=== PATIENT | male | born 1955 | race Caucasian/White ===

== ENCOUNTER 2019-02-22 14:57 | Emergency (ER) | payer MEDICARE, OTHER ==
[2019-02-22] MEDS ORDERED: Sodium Chloride 0.9% 10 ML Syringe FLUSH PRN (15:10)
[2019-02-22] MEDS ORDERED: Nitroglycerin 0.4 MG Tab.SL SL PRN (15:10)
[2019-02-22] MEDS ORDERED: Aspirin 81 MG Tab.Chew PO ONE (15:10)
--- NOTE | 2019-02-22 15:10 | EDM.PDOC ---
ED HPI GENERAL MEDICAL PROBLEM - General Chief Complaint: Chest Pain Stated Complaint: CHEST PAIN [id number] Time Seen by Provider: 02/22/19 15:09 Source of Information: Reports: Patient, Old Records, RN, RN Notes Reviewed History Limitations: Reports: No Limitations - History of Present Illness INITIAL COMMENTS - FREE TEXT/NARRATIVE: Pt presents to ER by POV with c/o chest pain that began last night. Pt states the CP began while he was at rest, and feels like a tightness associated with shortness of breath. He denies cough, wheezing, palpitations, edema, orthopnea, nausea, or hemoptysis. Pt states the symptoms subsided and he slept through the night. Today he tried to do a little light work and the pain return. Pt has no personal Hx of CAD or previous ME. However, pt's father, several brothers, and one sister have all had stents. Onset: Sudden Onset Date: 02/21/19 Duration: Getting Worse, Waxing/Waning Location: Reports: Chest Quality: Reports: Pressure Severity: Moderate Improves with: Reports: None Worsens with: Reports: None Associated Symptoms: Reports: No Other Symptoms Left Chest Pain Score (Numeric/FACES): 8 - Related Data Allergies Allergy/AdvReac Type Severity Reaction Status Date / Time Penicillins Allergy Itching Verified 02/22/19 15:02 Home Meds: Home Meds . [No Known Home Meds] 11/17/16 [History] Past Medical History - Past Health History Medical/Surgical History: Denies Medical/Surgical History HEENT History: Reports: None Cardiovascular History: Reports: Heart Murmur Other Cardiovascular History: heart murmur when he was little Respiratory History: Reports: None Gastrointestinal History: Reports: None Genitourinary History: Reports: None Musculoskeletal History: Reports: None Neurological History: Reports: None Psychiatric History: Reports: None Endocrine/Metabolic History: Reports: None Hematologic History: Reports: None Immunologic History: Reports: None Oncologic (Cancer) History: Reports: None Dermatologic History: Reports: None - Infectious Disease History Infectious Disease History: Reports: None - Past Surgical History Head Surgeries/Procedures: Reports: None Social & Family History - Family History Cardiac: Reports: CAD (Father, brothers, and sister), Stent (Father had stents x11, several brothers and one sister also have stents) - Tobacco Use Smoking Status *Q: Never Smoker Second Hand Smoke Exposure: No - Caffeine Use Caffeine Use: Reports: Coffee - Recreational Drug Use Recreational Drug Use: No - Living Situation & Occupation Living situation: Reports: Occupation: Employed ED ROS GENERAL - Review of Systems Review Of Systems: ROS reveals no pertinent complaints other than HPI. ED EXAM, GENERAL - Physical Exam Exam: See Below Exam Limited By: No Limitations General Appearance: Alert, WD/WN, No Apparent Distress Eye Exam: Bilateral Eye: Normal Inspection Ears: Normal External Exam, Hearing Grossly Normal Nose: Normal Inspection, Normal Mucosa, No Blood Throat/Mouth: Normal Inspection, Normal Lips, Normal Teeth, Normal Gums, Normal Oropharynx, Normal Voice, No Airway Compromise Head: Atraumatic, Normocephalic Neck: Normal Inspection, Supple, Non-Tender, Full Range of Motion Respiratory/Chest: No Respiratory Distress, Lungs Clear, Normal Breath Sounds, No Accessory Muscle Use, Chest Non-Tender Cardiovascular: Normal Peripheral Pulses, Regular Rate, Rhythm, No Edema, No Gallop, No JVD, No Murmur, No Rub GI/Abdominal: Normal Bowel Sounds, Soft, Non-Tender, No Organomegaly, No Distention, No Abnormal Bruit, No Mass (Male) Exam: Deferred Rectal (Males) Exam: Deferred Back Exam: Normal Inspection, Full Range of Motion, NT Extremities: Normal Inspection, Normal Range of Motion, Non-Tender, Normal Capillary Refill, No Pedal Edema Neurological: Alert, Oriented, CN II-XII Intact, Normal Cognition, Normal Gait, Normal Reflexes, No Motor/Sensory Deficits Psychiatric: Normal Affect, Normal Mood Skin Exam: Warm, Dry, Intact, Normal Color, No Rash EKG INTERPRETATION EKG Date: 02/22/19 Time: 16:11 Rhythm: NSR [place]: Normal P-Wave: Present QRS: Normal ST-T: Normal QT: Normal Comparison: No Change EKG Interpretation Comments: No acute ischemic changes. Course - Vital Signs Last Recorded V/S: Last Vital Signs Temp 36.1 C 02/22/19 15:02 Pulse 72 02/22/19 15:02 Resp 14 02/22/19 15:02 BP 137/75 02/22/19 15:13 Pulse Ox 97 02/22/19 15:02 - Orders/Labs/Meds Orders: Active Orders 24 hr Category Date Time Status EKG 12 Lead [EKG Documentation Completion] [RC] STAT Care 02/22/19 15:10 Active Peripheral IV Care [] . DIRECTED Care 02/22/19 15:11 Active Heparin Sodium/0.45% NaCl [Heparin 25,000 Units in 1/2 Med 02/22/19 15:45 Active NS 500 ML] 25,000 units in 500 ml IV TITRATE Nitroglycerin [Nitrostat] Med 02/22/19 15:10 Active 0.4 mg SL Q5M PRN Sodium Chloride 0.9% [Saline Flush] Med 02/22/19 15:10 Active 10 ml FLUSH ASDIRECTED PRN Peripheral IV Insertion Adult [OM.PC] Stat Oth 02/22/19 15:10 Ordered Medication Orders Heparin Sodium/Sodium Chloride (Heparin 25,000 Units In 1/2 Ns 500 Ml) 25,000 units in 500 mls @ 25.909 mls/hr IV TITRATE EVAN; Protocol Last Admin: 02/22/19 15:50 Dose: 12 units/kg/hr, 25.909 mls/hr Nitroglycerin (Nitrostat) 0.4 mg SL Q5M PRN PRN Reason: Chest Pain Last Admin: 02/22/19 15:13 Dose: 0.4 mg Sodium Chloride (Saline Flush) 10 ml FLUSH ASDIRECTED PRN PRN Reason: Keep Vein Open Last Admin: 02/22/19 15:13 Dose: 10 ml Labs: Laboratory Tests 02/22/19 02/22/19 02/22/19 Range/Units 15:07 15:07 15:07 WBC 6.3 (5.0-10.0) 10^3/uL RBC 4.78 (4.6-6.2) 10^6/uL Hgb 15.4 (14.0-18.0) g/dL Hct 45.0 (40.0-54.0) % MCV 94.1 (80-100) fL MCH 32.2 (27.0-34.0) pg MCHC 34.2 (33.0-35.0) g/dL Plt Count 140 L (150-450) 10^3/uL Neut % (Auto) 67.0 (42.2-75.2) % Lymph % (Auto) 21.3 (20.5-50.1) % [place] % (Auto) 9.2 H (2-8) % Eos % (Auto) 2.2 (1.0-3.0) % Baso % (Auto) 0.3 (0.0-1.0) % D-Dimer, Quantitative 326 (0-400) ng/mL Sodium 135 (135-145) mmol/L Potassium 4.2 (3.6-5.0) mmol/L Chloride 106 (101-111) mmol/L Carbon Dioxide 23.0 (21.0-31.0) mmol/L Anion Gap 10.2 BUN 22 H (7-18) mg/dL Creatinine 1.0 (0.6-1.3) mg/dL Est Cr Clr Drug Dosing 76.04 mL/min Estimated GFR (MDRD) > 60 BUN/Creatinine Ratio 22.00 Glucose 82 (74-105) mg/dL Calcium 8.5 (8.4-10.2) mg/dl Total Bilirubin 0.9 (0.2-1.0) mg/dL AST 28 (10-42) IU/L ALT 18 (10-60) IU/L Alkaline Phosphatase 75 (42-121) IU/L Troponin I 0.34 H* (0.00-0.02) ng/ml Total Protein 7.4 (6.7-8.2) g/dl Albumin 4.2 (3.2-5.5) g/dl Globulin 3.2 Albumin/Globulin Ratio 1.31 Lipase 28 (22-51) U/L Meds: Medications Generic Name Dose Route Start Last Admin Trade Name Freq PRN Reason Stop Dose Admin Heparin Sodium/Sodium Chloride 25,000 units in 500 mls @ 25.909 mls/hr 15:45 02/22/19 15:50 Heparin 25,000 Units In 1/2 Ns 500 Ml IV 12 units/kg/hr TITRATE EVAN 25.909 mls/hr Administration Protocol 12 UNITS/KG/HR Nitroglycerin 0.4 mg 02/22/19 15:10 02/22/19 15:13 Nitrostat SL 0.4 mg Q5M PRN Administration Chest Pain Sodium Chloride 10 ml 02/22/19 15:10 02/22/19 15:13 Saline Flush FLUSH 10 ml ASDIRECTED PRN Administration Keep Vein Open Discontinued Medications Generic Name Dose Route Start Last Admin Trade Name Freq PRN Reason Stop Dose Admin Aspirin 324 mg 02/22/19 15:10 02/22/19 15:13 Aspirin PO 02/22/19 15:11 324 mg ONETIME ONE Administration Heparin Sodium (Porcine) 4,000 units 02/22/19 15:44 02/22/19 15:50 Heparin Sodium IVPUSH 02/22/19 15:45 4,000 units ONETIME ONE Administration - Radiology Interpretation Free Text/Narrative:: XR Chest: no acute process per Rad. report. Departure - Departure Time of Disposition: 16:12 Disposition: DC/Tfer to [facility] 02 Reason for Transfer *Q: Primary PCI Indicated Condition: Serious, Critical Clinical Impression: Non-STEMI (non-ST elevated myocardial infarction) Forms: ED Department Discharge, Interfacility Transfer EMTALA - My Orders Last 24 Hours: My Active Orders 02/22/19 15:10 EKG 12 Lead [EKG Documentation Completion] [RC] STAT Nitroglycerin [Nitrostat] 0.4 mg SL Q5M PRN Sodium Chloride 0.9% [Saline Flush] 10 ml FLUSH ASDIRECTED PRN Peripheral IV Insertion Adult [OM.PC] Stat 02/22/19 15:11 Peripheral IV Care [RC] . DIRECTED 02/22/19 15:45 Heparin Sodium/0.45% NaCl [Heparin 25,000 Units in 1/2 NS 500 ML] 25,000 units in 500 ml IV TITRATE - Assessment/Plan Last 24 Hours: My Active Orders 02/22/19 15:10 EKG 12 Lead [EKG Documentation Completion] [RC] STAT Nitroglycerin [Nitrostat] 0.4 mg SL Q5M PRN Sodium Chloride 0.9% [Saline Flush] 10 ml FLUSH ASDIRECTED PRN Peripheral IV Insertion Adult [OM.PC] Stat 02/22/19 15:11 Peripheral IV Care [RC] . DIRECTED 02/22/19 15:45 Heparin Sodium/0.45% NaCl [Heparin 25,000 Units in 1/2 NS 500 ML] 25,000 units in 500 ml IV TITRATE
[2019-02-22 15:13] VITALS: BP 137/75
[2019-02-22 15:36] LABS: ANION GAP 10.2; CHLORIDE,CL 106 mmol/L (101-111); SODIUM,NA 135 mmol/L (135-145)
--- NOTE | 2019-02-22 15:39 | CR ---
Clinical history: 63-year-old male chest pain. Interpretation: No acute new cardiopulmonary abnormality identified in the interval since 17 November 2016 exam. Upright AP portable chest film confirms normal cardiac silhouette with left-sided aortic arch. (External tie tamper leads) No cephalization of vascular flow, new signs of alveolar edema or dependent pleural fluid accumulation. No new lung mass, hilar lymphadenopathy or focal lobar pneumonia. No atelectasis/collapse. No pneumothorax.
[2019-02-22] MEDS ORDERED: Heparin Sodium 5,000 Units/ML Vial IVPUSH ONE (15:44)
[2019-02-22] MEDS ORDERED: Heparin Sodium/0.45% NaCl 25,000 UNITS/500 ML BAG IV SCH (15:45)
== END 2019-02-22 16:32 ==
LOC: DL.ED 14:57
DX: I21.4 Non-ST elevation (NSTEMI) myocardial infarction (principal); Z88.0 Allergy status to penicillin
CPT/HCPCS: 36415; 71045; 80053; 83690; 84484; 85025; 85379; 93005; 96365; 99285-25; A9270-GY; J1644

== ENCOUNTER 2019-02-25 06:43 | Emergency (ER) | payer MEDICARE, OTHER ==
[2019-02-25 06:53] VITALS: BP 137/85
[2019-02-25] MEDS ORDERED: Heparin Sodium 5,000 Units/ML Vial IVPUSH ONE (07:05)
[2019-02-25] MEDS ORDERED: Aspirin 81 MG Tab.Chew PO ONE (07:05)
[2019-02-25] MEDS ORDERED: Heparin Sodium/0.45% NaCl 25,000 UNITS/500 ML BAG IV SCH (07:15)
[2019-02-25 07:21] LABS: ANION GAP 13.6; CHLORIDE,CL 105 mmol/L (101-111); SODIUM,NA 136 mmol/L (135-145)
--- NOTE | 2019-02-25 07:27 | EDM.PDOC ---
ED HPI GENERAL MEDICAL PROBLEM - General Chief Complaint: Chest Pain Stated Complaint: HAD A STINT PUT IN THURSDAY- NOT FEELING WELL Time Seen by Provider: 02/25/19 06:55 Source of Information: Reports: Patient, Family, Old Records, RN, RN Notes Reviewed History Limitations: Reports: No Limitations - History of Present Illness INITIAL COMMENTS - FREE TEXT/NARRATIVE: Pt presents to ER from home by POV with c/o chest pain. He was transferred from here on 02/22/19 to [facility] for a non-STEMI and taken to cardiac cath where he received a stent. Late last evening pt began to have a pain in the left elbow, but was able to sleep through the night. This morning after waking, as soon as he became active the chest pain returned very similar to the pain he experienced on 02/22/19 except today the pain was worse. He took Nitroglycerin 0.4mg SL x1 with minimal relief. Onset: Gradual Duration: Constant, Getting Worse Location: Reports: Chest Quality: Reports: Ache, Pressure, Same as Previous Episode Severity: Severe Improves with: Reports: None Worsens with: Reports: None Associated Symptoms: Reports: No Other Symptoms Treatments EDUCATION TECHNICIAN: Reports: Nitroglycerin Mid-Sternal Chest Pain Score (Numeric/FACES): 7 - Related Data Allergies Allergy/AdvReac Type Severity Reaction Status Date / Time Penicillins Allergy Itching Verified 02/25/19 06:53 Home Meds: Home Meds Clopidogrel [Plavix] 75 mg PO 02/25/19 [History] Metoprolol Succinate 25 mg PO 02/25/19 [History] Nitroglycerin 0.4 mg SL PRN 02/25/19 [History] atorvaSTATin Calcium [Atorvastatin Calcium] 80 mg PO 02/25/19 [History] Past Medical History - Past Health History Medical/Surgical History: Denies Medical/Surgical History HEENT History: Reports: None Cardiovascular History: Reports: Heart Murmur, [place], Stents Other Cardiovascular History: heart murmur when he was little Respiratory History: Reports: None Gastrointestinal History: Reports: None Genitourinary History: Reports: None Musculoskeletal History: Reports: None Neurological History: Reports: None Psychiatric History: Reports: None Endocrine/Metabolic History: Reports: None Hematologic History: Reports: None Immunologic History: Reports: None Oncologic (Cancer) History: Reports: None Dermatologic History: Reports: None - Infectious Disease History Infectious Disease History: Reports: None - Past Surgical History Head Surgeries/Procedures: Reports: None Other Cardiovascular Surgeries/Procedures: Stent placement after [facility] 02-23-2019 Social & Family History - Family History Family Medical History: Noncontributory Cardiac: Reports: CAD, Stent - Tobacco Use Smoking Status *Q: Never Smoker Second Hand Smoke Exposure: No - Caffeine Use Caffeine Use: Reports: Coffee, Soda - Alcohol Use Days Per Week of Alcohol Use: 1 Number of Drinks Per Day: 3 Total Drinks Per Week: 3 - Recreational Drug Use Recreational Drug Use: No - Living Situation & Occupation Living situation: Reports: Occupation: Employed ED ROS GENERAL - Review of Systems Review Of Systems: ROS reveals no pertinent complaints other than HPI. ED EXAM, GENERAL - Physical Exam Exam: See Below Exam Limited By: No Limitations General Appearance: Alert, WD/WN, No Apparent Distress, Anxious Eye Exam: Bilateral Eye: Normal Inspection Nose: Normal Inspection, Normal Mucosa, No Blood Throat/Mouth: Normal Inspection, Normal Voice, No Airway Compromise Head: Atraumatic, Normocephalic Neck: Normal Inspection Respiratory/Chest: No Respiratory Distress, Lungs Clear, Normal Breath Sounds, No Accessory Muscle Use, Chest Non-Tender Cardiovascular: Normal Peripheral Pulses, Regular Rate, Rhythm, No Edema, No Gallop, No JVD, No Murmur, No Rub GI/Abdominal: Normal Bowel Sounds, Soft, Non-Tender Back Exam: Normal Inspection Extremities: Normal Inspection, Normal Range of Motion, Non-Tender, Normal Capillary Refill, No Pedal Edema Neurological: Alert, Oriented, CN II-XII Intact, Normal Cognition, No Motor/ Sensory Deficits Psychiatric: Anxious Skin Exam: Warm, Dry, Intact, Normal Color, No Rash EKG INTERPRETATION EKG Date: 02/25/19 Time: 06:52 Rhythm: Other (SR) Rate (Beats/Min): 66 [place]: LAD-Left [place] Deviation P-Wave: Present QRS: Other (Q wave in lead 3 with inverted T wave) ST-T: Normal QT: Normal [place]/PQ Interval: 1st degree AVB Comparison: Change From Previous EKG Course - Vital Signs Last Recorded V/S: Last Vital Signs Temp 36.5 C 02/25/19 06:49 Pulse 59 L 02/25/19 06:49 Resp 17 02/25/19 06:49 BP 137/85 02/25/19 06:49 Pulse Ox 97 05/10/19 06:49 - Orders/Labs/Meds Orders: Active Orders 24 hr Category Date Time Status EKG Documentation Completion [RC] URGENT Care 02/25/19 06:52 Active Chest 1V Frontal [CR] Urgent Exams 02/25/19 06:53 Taken COMPREHENSIVE METABOLIC PN,CMP [CHEM] Urgent Lab 02/25/19 06:52 Received INR,PT,PROTHROMBIN TIME [COAG] Stat Lab 02/25/19 06:52 Received TROPONIN I [CHEM] Urgent Lab 02/25/19 06:52 Received Heparin Sodium/0.45% NaCl [Heparin 25,000 Units in 1/2 Med 02/25/19 07:15 Active NS 500 ML] 25,000 units in 500 ml IV TITRATE Medication Orders Heparin Sodium/Sodium Chloride (Heparin 25,000 Units In 1/2 Ns 500 Ml) 25,000 units in 500 mls @ 25.256 mls/hr IV TITRATE EVAN; Protocol Labs: Laboratory Tests 02/25/19 Range/Units 06:52 WBC 9.1 (5.0-10.0) 10^3/uL RBC 4.87 (4.6-6.2) 10^6/uL Hgb 15.6 (14.0-18.0) g/dL Hct 45.6 (40.0-54.0) % MCV 93.6 (80-100) fL MCH 32.0 (27.0-34.0) pg MCHC 34.2 (33.0-35.0) g/dL Plt Count 130 L (150-450) 10^3/uL Neut % (Auto) 75.7 H (42.2-75.2) % Lymph % (Auto) 12.9 L (20.5-50.1) % [place] % (Auto) 9.8 H (2-8) % Eos % (Auto) 1.4 (1.0-3.0) % Baso % (Auto) 0.2 (0.0-1.0) % Chem. analyzer is down: Troponin lab is not available until 1000HRS today. Meds: Medications Generic Name Dose Route Start Last Admin Trade Name Freq PRN Reason Stop Dose Admin Heparin Sodium/Sodium Chloride 25,000 units in 500 mls @ 25.256 mls/hr 07:15 Heparin 25,000 Units In 1/2 Ns 500 Ml IV TITRATE EVAN Protocol 12 UNITS/KG/HR Discontinued Medications Generic Name Dose Route Start Last Admin Trade Name Esther PRN Reason Stop Dose Admin Aspirin 324 mg 02/25/19 07:05 Aspirin PO 02/25/19 07:06 ONETIME ONE Heparin Sodium (Porcine) 4,000 units 02/25/19 07:05 Heparin Sodium IVPUSH 02/25/19 07:06 ONETIME ONE - Radiology Interpretation Free Text/Narrative:: CXR: no acute process, see Rad. report. Departure - Departure Time of Disposition: 07:10 Disposition: DC/Tfer to Acute Hospital 02 Reason for Transfer *Q: Primary PCI Indicated Condition: Serious Clinical Impression: Acute coronary syndrome Forms: ED Department Discharge, Interfacility Transfer EMTALA - My Orders Last 24 Hours: My Active Orders 02/25/19 07:15 Heparin Sodium/0.45% NaCl [Heparin 25,000 Units in 1/2 NS 500 ML] 25,000 units in 500 ml IV TITRATE - Assessment/Plan Last 24 Hours: My Active Orders 02/25/19 07:15 Heparin Sodium/0.45% NaCl [Heparin 25,000 Units in 1/2 NS 500 ML] 25,000 units in 500 ml IV TITRATE
== END 2019-02-25 07:48 ==
LOC: DL.ED 06:43
DX: I24.9 Acute ischemic heart disease, unspecified (principal); I25.2 Old myocardial infarction; Z88.0 Allergy status to penicillin
CPT/HCPCS: 36415; 71045; 80053; 84484; 85025; 85610; 85730; 93005; 96374; 96376; 99285; A9270; J1644

== ENCOUNTER 2019-07-19 12:22 | Observation (INO) | payer MEDICARE, OTHER ==
[2019-07-19] MEDS ORDERED: Ondansetron 4 MG Tab.DIS PO PRN (13:48)
[2019-07-19] MEDS ORDERED: Morphine 2 MG/ML Syringe IVPUSH PRN (13:48)
[2019-07-19] MEDS ORDERED: Clopidogrel 75 MG Tab PO SCH (13:51)
[2019-07-19] MEDS ORDERED: Nitroglycerin 0.4 MG Tab.SL SL PRN (13:51)
[2019-07-19] MEDS ORDERED: Aspirin 81 MG Tab.EC PO SCH (13:51)
--- NOTE | 2019-07-19 14:16 | CR ---
EXAMINATION: Chest 1V Frontal SEX: Male AGE: 64 years CLINICAL HISTORY: 64-year-old male with chest pain. Comparison chest radiographs and 25 Feb 2019. INTERPRETATION: No acute new cardiopulmonary abnormality. 1. Borderline cardiomegaly without increased pulmonary venous congestion, new signs of alveolar edema or dependent pleural fluid accumulation. (External vehicle monitor technician leads) 2. No new lung mass, hilar lymphadenopathy or focal lobar pneumonia. 3. No atelectasis/collapse despite less than optimal inspiratory effort. No pneumothorax. 4. Hypertrophic arthritic changes dorsal spine.
[2019-07-19 14:30] LABS: ANION GAP 10.9; CHLORIDE,CL 102 mmol/L (101-111); SODIUM,NA 137 mmol/L (135-145)
--- NOTE | 2019-07-19 15:11 | EKG ---
07/19/2019 - AMILCAR DEVINE - TIME: 13:18:02. 12-lead EKG shows normal sinus rhythm with PVC and possible ventricular trigeminy. No significant ST elevation or ST depression noted on this 12-lead EKG. Nonspecific ST-T wave changes noted and similar when compared to his previous EKG. [facility] /[id number]
--- NOTE | 2019-07-19 18:05 | HP ---
CHIEF COMPLAINT: Chest pain. HISTORY OF PRESENTING ILLNESS: Mr. Lavelle Jaramillo is a 64-year-old male with medical history significant for [id number] myocardial infarction back in February, and he underwent coronary angiogram requiring stent to the right coronary artery on 02/23 and had persistent pain on 02/25 and underwent a coronary angiogram again which showed patent stent, but no in-stent restenosis or any further pathology identified at that time, and since then, he has been apparently normal at his baseline function, but since Thursday, that is 07/17, he has been having some chest pains and was evaluated in the clinic today and was concerned for possible acute coronary syndrome and got admitted to the hospital. His initial troponin remained negative. 12-lead EKG was benign. At this time, the patient says that the chest pain has been going on since Thursday, which is mostly in the anterior chest. Feels like a pressure type of pain, radiating towards the throat, associated with mild dyspnea. Lasted for a few minutes, but since this morning it has been persistent and constant, since 9:00 a.m. this morning. Associated with shortness of breath. Denied any fevers or chills in the last few days. No complaints of cough with sputum in the last few days. No complaints of nausea, vomiting, or diarrhea in the last few days. Denies any abdominal pain. No clear aggravating factors for the chest pain. No clear relieving factor for the chest pain. The patient denied any history of chest pains on exertion, in the past. No history of dyspnea on exertion in the past. No history of orthopnea or paroxysmal nocturnal dyspnea. The patient denied any history of hematemesis, hematochezia, or melenic stools. Normal bowel and bladder habits. The patient does have hemorrhoids and sometimes sees blood on the tissue paper. REVIEW OF SYSTEMS: A complete review of system including skin; ear, nose, and throat; cardiovascular system; respiratory system; gastrointestinal system; genitourinary system; hematology-oncology; neurology; allergy-immunology; constitutional were all evaluated and were negative except for the above-said notes. PAST MEDICAL HISTORY: Significant for coronary artery disease, [id number] myocardial infarction. PAST SURGICAL HISTORY: Coronary artery stent placement. FAMILY HISTORY: Significant for diabetes in his mother and breast cancer in his sister. SOCIAL HISTORY: The patient denied any history of smoking tobacco. History of occasional alcohol intake. ALLERGIES: The patient noted to have allergies to penicillin which causes itching. MEDICATIONS: Home medications include omeprazole 20 mg daily, aspirin 81 mg daily, nitroglycerin 0.4 mg sublingual as needed for chest pain, Toprol-XL 25 mg daily, Plavix 75 mg daily, Lipitor 80 mg at bedtime. PHYSICAL EXAMINATION: Vital Signs: Temperature of 97, pulse of 52, blood pressure of 129/81, respiratory rate of 20, saturating at 100%. General Appearance: The patient is well oriented to time, place, and person. Follows commands spontaneously. Cardiovascular System: S1, S2 heard with normal intensity. No gallops. Respiratory System: Clear to auscultation bilaterally. No wheeze. No crepitations. Abdomen: Soft. Bowel sounds positive. Nontender. No rigidity. Extremities: No edema in bilateral lower extremities. LABORATORY DATA: No new labs ordered for today. Troponin is negative at 0.02. 12-lead EKG shows normal sinus rhythm with occasional PVC, questionable ventricular trigeminy, but no significant ST-elevation or ST-depression when compared to his previous 12-lead EKG. ASSESSMENT: 1. Chest pain. 2. Coronary artery disease. 3. Status post stents placed to the right coronary artery. PLAN: 1. Chest pain. The patient presents with chest pain and noted to have negative cardiac enzyme. His troponin is less than 0.02. His 12-lead EKG shows normal sinus rhythm with no significant ST-elevation or ST- depression, but noted to have PVCs, which is new when compared to the previous EKG. His chest pain is concerning for possible acute coronary syndrome, but the recent coronary angiogram done on 02/25 is normal and with a patent stent, but the patient claims that there were days where he missed his medications, taking aspirin and Plavix for 1 to 2 days, so the patient is at risk for in-stent restenosis. We will closely follow the patient. We will follow with serial cardiac enzymes. Closely monitor in the telemetry unit. If his troponin becomes positive or if his symptoms are not resolved, then he might need further cardiac workup and a higher level of care, but for now, we will closely follow the patient on the telemetry. Other differential would include musculoskeletal pain as the patient has been working this fall and other differential would include possible gastroesophageal reflux disease exacerbation. He is noted to be on omeprazole. Continue the same. 2. Hypertension. The patient's blood pressure is in the acceptable range. He is noted to be on beta afua, continue the same. Try to avoid any hypotensive episodes. 3. DVT prophylaxis. We will have him on Lovenox for DVT prophylaxis. 4. Noncompliance. The patient has noncompliance with medications where he has been missing taking his medication for 1 or 2 days, so the patient was educated about the importance of being compliant with medications, and I explained about side effects of not being complaint with medications, which he understands and verbalized the same. 5. Discussed with Dr. Verde, transferring physician, regarding the plan of care. Discussed with family members at bedside. Reviewed the labs and medications. Reviewed the old charts. [facility] /[id number]
--- NOTE | 2019-07-19 18:52 | EKG ---
07/19/2019 - AMILCAR DEVINE - TIME: 16:03:58. 12-lead EKG shows normal sinus rhythm with ventricular bigeminy, occasional PVC noted. No significant ST elevation or ST depression noted. 12-lead EKG same as the previous EKG without any changes. [facility] /[id number]
[2019-07-19] MEDS ORDERED: ATORVASTATIN 80 MG PO SCH (21:00)
[2019-07-20] MEDS ORDERED: OMEPRAZOLE 20 MG PO SCH (06:00)
[2019-07-20 08:04] VITALS: BP 125/64; PULSE 58
[2019-07-20] MEDS ORDERED: CLOPIDOGREL 75 MG PO SCH (09:00)
[2019-07-20] MEDS ORDERED: ASPIRIN 81 MG PO SCH (09:00)
[2019-07-20] MEDS ORDERED: Enoxaparin 40 MG/0.4 ML Syringe SUBCUT SCH (09:00)
[2019-07-20] MEDS ORDERED: METOPROLOL SUCCINATE 25 MG PO SCH (09:00)
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
--- NOTE | 2019-07-20 12:24 | PN ---
DATE: 07/20/2019 SUBJECTIVE: The patient is a 64-year-old male with history of coronary artery disease and history of stent placement in 02/2019, who was admitted with chest pain. The patient this morning is feeling much better, although he still feels that his chest is still slightly congested, but the pain overall is better. Three sets of troponin all came back negative. The patient denies any fever, chills, orthopnea, PND, abdominal pain, or any other complaints. OBJECTIVE: Vital Signs: Blood pressure is 125/64, pulse of 58, respirations 20, temperature of 96.8. Heart: Regular rate and rhythm. Normal S1 and S2. No gallops. No rubs. Lungs: Equal bilaterally. No crackles. No wheezing. Abdomen: Soft, nontender. Bowel sounds positive. Extremities: Negative for any calf tenderness. PLAN: We will discharge the patient home today. He will have him follow up with Dr. Verde next week and we will resume his home medication and he will also be set up for followup with his first mate. CONDITION ON DISCHARGE: Improved. [facility] /[id number]
== END 2019-07-20 11:20 | disposition home or self-care (01) ==
LOC: DL.MS 13:15
PROVIDERS: ADMIT Internal Medicine; ATTEND Internal Medicine
DX: R07.89 Other chest pain (principal); I25.10 Atherosclerotic heart disease of native coronary artery without angina pectoris; E78.5 Hyperlipidemia, unspecified; Z95.5 Presence of coronary angioplasty implant and graft; Z88.0 Allergy status to penicillin; Z79.899 Other long term (current) drug therapy; Z79.82 Long term (current) use of aspirin; Z79.02 Long term (current) use of antithrombotics/antiplatelets
CPT/HCPCS: 36415; 71045; 80048; 81001; 84484; 85027; 90686; 93005; A9270-GY; G0008; G0378; G0379

== ENCOUNTER 2019-08-09 06:56 | Day surgery (SDC) | payer MEDICARE, OTHER ==
[~2019-08-09 06:56] MED LIST: Midazolam 1 MG/ML 2 ML SDV ONE; Sodium Chloride 0.9% 10 ML Syringe FLUSH PRN; fentaNYL 100 MCG/2 ML SDV ONE
[2019-08-09] MEDS: Dextrose 5%-0.45% NaCl 1,000 ML IV SCH (07:30)
[2019-08-09] MEDS: fentaNYL 100 MCG/2 ML SDV IV ONE ×2 (08:06→08:07)
[2019-08-09] MEDS: Midazolam 1 MG/ML 2 ML SDV IV ONE ×2 (08:07→08:08)
[2019-08-09 12:27] VITALS: PULSE 57
[2019-08-09 12:28] VITALS: BP 117/72
--- NOTE | 2019-08-09 12:31 | OR ---
DATE: 08/09/2019 PROCEDURE: Esophagogastroduodenoscopy and multiple pinch biopsies. INSTRUMENT USED: [id number]-HQ190 Olympus video panendoscope. PREMEDICATIONS: No oral or topical anesthesia used. Fentanyl 100 mcg intravenous, Versed 2 mg intravenous, nasal O2 cannula. The procedure was done under pulse oximetry, BP recording, and manager cardiac. INDICATIONS: The patient with persistent heartburn, chest pain, and related throat discomfort, unexplained and not responsive to medical measures, on acid suppressant H2RA. Esophagogastroduodenoscopy is performed for detection of any active erosive lesions, Guillen esophagus, and/or malignancy also under consideration, H. pylori status to be determined, endoscopic hemostasis therapy if needed. DESCRIPTION OF PROCEDURE: The scope was passed with ease. Adequate visualization of the esophagus was made from proximal to the distal areas. No upper esophageal lesions identified. No distal esophageal stricture. No uphill or downhill esophageal varices. No Genet-Calle tear. No evidence of erosive esophagitis by Bladen criteria. No esophageal polyp or tumor mass identified. Z-line was seen at around 40 cm distal to the oral verge, configuration consistent with grade 1 by ZAP classification. No proximal gastric varices noted. Gastric fundus examination by retroflexion showed no polypoid lesions. No gastric ulcer, malignant mass, or vascular ectasia identified. Duodenal bulb showed no ulcer. Visualized second part of the duodenum was unremarkable. Multiple pinch biopsies were obtained from the gastric antrum and proximal body and sent for PyloriTek test for H. pylori, and if negative in an hour, the tissue is to be sent for histopathology. No bleeding was noted from any of the visualized areas at the completion of examination. Photographs were taken of the duodenal bulb, gastric antrum, fundus, and distal esophagus. IMPRESSION: Normal study. The patient tolerated the procedure well. [facility] /[id number]
== END 2019-08-09 10:30 | disposition home or self-care (01) ==
LOC: DL.ENDO 06:56
PROVIDERS: ATTEND Internal Medicine Gastroenterology
DX: R12 Heartburn (principal); R07.9 Chest pain, unspecified; R07.0 Pain in throat; E66.09 Other obesity due to excess calories; I25.10 Atherosclerotic heart disease of native coronary artery without angina pectoris; E78.5 Hyperlipidemia, unspecified; Z68.33 Body mass index [BMI] 33.0-33.9, adult
CPT/HCPCS: 43239; 87077; J2250; J3010; J7042

== ENCOUNTER 2019-10-25 11:18 | Emergency (ER) | payer MEDICARE, OTHER ==
[2019-10-25 11:57] LABS: ANION GAP 11.9; CHLORIDE,CL 102 mmol/L (101-111); SODIUM,NA 137 mmol/L (135-145)
[2019-10-25] MEDS ORDERED: Acetaminophen 325 MG Tab PO ONE (14:09)
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
== END 2019-10-25 14:38 ==
LOC: DL.ED 11:18
DX: S06.0X1A Concussion with loss of consciousness of 30 minutes or less, initial encounter (principal); I49.9 Cardiac arrhythmia, unspecified; I25.2 Old myocardial infarction; Z88.0 Allergy status to penicillin; Z79.899 Other long term (current) drug therapy; Z79.82 Long term (current) use of aspirin
CPT/HCPCS: 36415; 70450; 72125; 80053; 84484; 85025; 85610; 93005; 99285; A9270; G0480

== ENCOUNTER 2020-02-21 05:30 | Day surgery (SDC) | payer MEDICARE, OTHER ==
[~2020-02-21 05:30] MED LIST changes: +Dextrose 5%-0.45% NaCl 1,000 ML IV SCH; -Midazolam 1 MG/ML 2 ML SDV ONE; -fentaNYL 100 MCG/2 ML SDV ONE
[2020-02-21] MEDS ORDERED: Midazolam 1 MG/ML 2 ML SDV IV ONE ×6 (05:31→06:39)
[2020-02-21] MEDS ORDERED: fentaNYL 100 MCG/2 ML SDV IV ONE ×3 (05:31→06:32)
[2020-02-21] MEDS ORDERED: Midazolam 1 MG/ML 2 ML SDV ONE (06:20)
[2020-02-21] MEDS ORDERED: fentaNYL 100 MCG/2 ML SDV ONE (06:20)
--- NOTE | 2020-02-21 09:18 | OR ---
DATE: 02/21/2020 PROCEDURE: Total colonoscopy. INSTRUMENT USED: [id number] Olympus video colonoscope. PREMEDICATIONS: Fentanyl 100 mcg intravenous, Versed 3.5 mg intravenous. Nasal O2 cannula. The procedure was done under pulse oximetry, BP recording, and safety and health manager. INDICATION: The patient with rectal bleeding. Colonoscopic examination is done for detection of any polypoid lesions and removal, endoscopic hemostasis therapy if needed. DESCRIPTION OF PROCEDURE: Initial rectal exam was unremarkable. Rigid anoscopy showed small internal hemorrhoids without bleeding from them. The colonoscope was passed with ease. Scattered diverticula were noted in the distal left colon along with deformity. The scope was passed with ease to the ileocecal area. Photographs were taken of the normal-appearing cecum identified by landmarks of appendiceal orifice and double-bulged ileocecal folds. No bleeding was noted from any of the visualized areas at the commencement of the examination. The bowel preparation was found to be adequate, Concord scale 3 in all the regions, total score 9. No stricture. No vascular ectasia. No large isolated ulcerations seen. No evidence of diffuse inflammatory bowel disease in the form of friability, contact bleeding, or ulcerations. No polyp or tumor mass identified. Probing the proximal sides of folds and flexures using adequate distention and clearing up the stool material, withdrawal of the scope was made. Cecum to rectum time over 6 minutes. No bleeding was noted from any of the visualized areas at the completion of examination. IMPRESSION: 1. Internal hemorrhoids. 2. Diverticulosis. The patient tolerated the procedure well. [facility] /[id number]
[2020-02-21 10:59] VITALS: PULSE 61
[2020-02-21 11:01] VITALS: BP 91/64
== END 2020-02-21 09:07 | disposition home or self-care (01) ==
LOC: DL.ENDO 05:30
PROVIDERS: ATTEND Internal Medicine Gastroenterology
DX: K64.8 Other hemorrhoids (principal); K57.31 Diverticulosis of large intestine without perforation or abscess with bleeding; E66.09 Other obesity due to excess calories; I25.10 Atherosclerotic heart disease of native coronary artery without angina pectoris; D69.6 Thrombocytopenia, unspecified; K21.9 Gastro-esophageal reflux disease without esophagitis; F41.1 Generalized anxiety disorder; Z68.33 Body mass index [BMI] 33.0-33.9, adult
CPT/HCPCS: 45378; J2250; J3010; J7042; G0121

== ENCOUNTER 2020-05-15 08:44 | Emergency (ER) | payer MEDICARE, OTHER ==
[2020-05-15 08:54] VITALS: PULSE 62
[2020-05-15] MEDS ORDERED: Nitroglycerin 0.4 MG Tab.SL ONE (09:08)
[2020-05-15] MEDS ORDERED: Aspirin 81 MG Tab.Chew ONE (09:08)
[2020-05-15 09:24] LABS: ANION GAP 10.2 mEq/L (7-13); CHLORIDE,CL 104 mmol/L (98-107); SODIUM,NA 137 mmol/L (136-145)
[2020-05-15] MEDS ORDERED: Morphine 2 MG/ML SYRINGE ONE (10:06)
--- NOTE | 2020-05-15 10:21 | CR ---
PROCEDURE INFORMATION: Exam: XR Chest, 1 View Exam date and time: 05/15/2020 10:13 AM Age: 65 years old Clinical indication: Other: Chest pain (pressure); Additional info: Chest pain (pressure) TECHNIQUE: Imaging protocol: XR of the chest Views: 1 view. COMPARISON: CR Chest 1V Frontal 07/19/2019 2:06 PM FINDINGS: Lungs: Mid inspiratory effort with resultant low lung volumes. No confluent infiltrates are visualized within the pulmonary parenchyma. Pleural space: Unremarkable. No pleural effusion. No pneumothorax. Heart/Mediastinum: Unremarkable. No cardiomegaly. Bones/joints: Unremarkable. IMPRESSION: No acute findings.
--- NOTE | 2020-05-15 10:24 | EDM.PDOC ---
ED HPI GENERAL MEDICAL PROBLEM - General Chief Complaint: Chest Pain Stated Complaint: CHEST PAIN Time Seen by Provider: 05/15/20 08:56 Source of Information: Reports: Patient History Limitations: Reports: No Limitations - History of Present Illness INITIAL COMMENTS - FREE TEXT/NARRATIVE: This 65 yo male patient reports to the ED due to left sided substernal chest pain radiating to his left arm and hand. The patient reports his symptoms started this morning at 0745 and have continued. The patient rates his chest pain (more "pressure") at a 6-7/10 at the time of presentation. The patient reports he has not taken his nitro for his current symptoms. 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 The patient has a history of cardiac stents placed in February of 2019 with similar symptoms. The patient reports more pain in his left arm and numbness in his left hand. Onset: Today Onset Date: 05/15/20 Onset Time: 07:45 Duration: Constant Location: Reports: Chest, Upper Extremity, Left Quality: Reports: Ache (left arm), Dull, Pressure (chest) Severity: Moderate Improves with: Reports: None Worsens with: Reports: None Context: Reports: Other Associated Symptoms: Reports: Chest Pain, Shortness of Breath - Related Data Allergies Allergy/AdvReac Type Severity Reaction Status Date / Time Penicillins Allergy Itching Verified 02/20/20 09:07 Home Meds: Home Meds Clopidogrel [Plavix] 75 mg PO DAILY 02/25/19 [History] Metoprolol Succinate 25 mg PO DAILY 02/25/19 [History] Nitroglycerin 0.4 mg SL ASDIRECTED PRN 02/25/19 [History] atorvaSTATin Calcium [Atorvastatin Calcium] 80 mg PO BEDTIME 02/25/19 [History] Aspirin [Ecotrin EC] 81 mg PO DAILY 07/19/19 [History] Omeprazole 20 mg PO DAILY 07/19/19 [History] Past Medical History - Past Health History Medical/Surgical History: Denies Medical/Surgical History HEENT History: Reports: Impaired Vision Other HEENT History: READING GLASSES Cardiovascular History: Reports: Heart Murmur, NE, Stents Other Cardiovascular History: heart murmur when he was little. pericarditis Respiratory History: Reports: None Gastrointestinal History: Reports: Chronic Constipation, GERD Genitourinary History: Reports: None Musculoskeletal History: Reports: Arthritis Neurological History: Reports: None Psychiatric History: Reports: None Endocrine/Metabolic History: Reports: None Hematologic History: Reports: None Immunologic History: Reports: None Oncologic (Cancer) History: Reports: None Dermatologic History: Reports: None - Infectious Disease History Infectious Disease History: Reports: Chicken Pox, Measles, Mumps - Past Surgical History Head Surgeries/Procedures: Reports: None HEENT Surgical History: Reports: None Cardiovascular Surgical History: Reports: Coronary Artery Stent Other Cardiovascular Surgeries/Procedures: Stent placement after NE 02-23-2019 Respiratory Surgical History: Reports: None GI Surgical History: Reports: EGD Male Surgical History: Reports: Vasectomy Neurological Surgical History: Reports: None Musculoskeletal Surgical History: Reports: None Dermatological Surgical History: Reports: None Social & Family History - Family History Family Medical History: Noncontributory Cardiac: Reports: CAD, Stent Endocrine/Metabolic: Reports: Diabetes, type II - Caffeine Use Caffeine Use: Reports: Coffee Caffeine Use Comment: 1-2 cups daily - Living Situation & Occupation Living situation: Reports: Occupation: Employed ED ROS GENERAL - Review of Systems Review Of Systems: Comprehensive ROS is negative, except as noted in HPI. ED EXAM, GENERAL - Physical Exam Exam: See Below Exam Limited By: No Limitations General Appearance: Alert, WD/WN, Moderate Distress Eye Exam: Bilateral Eye: EOMI, Normal Inspection, PERRL Ears: Normal External Exam, Normal Canal, Hearing Grossly Normal, Normal TMs Nose: Normal Inspection, Normal Mucosa, No Blood Throat/Mouth: Normal Inspection, Normal Lips, Normal Teeth, Normal Gums, Normal Oropharynx, Normal Voice, No Airway Compromise Head: Atraumatic, Normocephalic Neck: Normal Inspection, Supple, Non-Tender, Full Range of Motion Respiratory/Chest: No Respiratory Distress, Lungs Clear, Normal Breath Sounds, No Accessory Muscle Use, Chest Non-Tender Cardiovascular: Normal Peripheral Pulses, Regular Rate, Rhythm, No Edema, No Gallop, No JVD, No Murmur, No Rub GI/Abdominal: Normal Bowel Sounds, Soft, Non-Tender, No Organomegaly, No Distention, No Abnormal Bruit, No Mass (Male) Exam: Deferred Rectal (Males) Exam: Deferred Back Exam: Normal Inspection, Full Range of Motion, NT Extremities: Normal Inspection, Normal Range of Motion, No Pedal Edema, Normal Capillary Refill, Arm Pain (left arm) Neurological: Alert, Oriented, CN II-XII Intact, Normal Cognition, Normal Gait, Normal Reflexes, No Motor/Sensory Deficits Psychiatric: Normal Affect, Normal Mood Skin Exam: Warm, Dry, Intact, Normal Color, No Rash Lymphatic: No Adenopathy Course - Vital Signs Last Recorded V/S: Last Vital Signs Temp 36.2 C 05/15/20 08:53 Pulse 62 05/15/20 08:53 Resp 18 05/15/20 08:53 BP 127/79 05/15/20 09:15 Pulse Ox 98 05/15/20 08:53 - Orders/Labs/Meds Orders: Active Orders 24 hr Category Date Time Status EKG Documentation Completion [RC] ROUTINE Care 05/15/20 12:46 Active EKG Documentation Completion [RC] STAT Care 05/15/20 08:46 Active Labs: Laboratory Tests 05/15/20 05/15/20 05/15/20 Range/Units 08:56 08:56 08:56 WBC 5.6 (5.0-10.0) 10^3/uL RBC 4.45 L (4.6-6.2) 10^6/uL Hgb 14.2 (14.0-18.0) g/dL Hct 42.4 (40.0-54.0) % MCV 95.3 (80-100) fL MCH 31.9 (27.0-34.0) pg MCHC 33.5 (33.0-35.0) g/dL Plt Count 120 L (150-450) 10^3/uL Neut % (Auto) 64.8 (42.2-75.2) % Lymph % (Auto) 20.4 L (20.5-50.1) % [place] % (Auto) 10.1 H (2-8) % Eos % (Auto) 4.3 H (1.0-3.0) % Baso % (Auto) 0.4 (0.0-1.0) % D-Dimer, Quantitative 195 (0-400) ng/mL Sodium 137 (136-145) mmol/L Potassium 4.2 (3.5-5.1) mmol/L Chloride 104 (98-107) mmol/L Carbon Dioxide 27 (21-32) mmol/L Anion Gap 10.2 (7-13) mEq/L BUN 21 H (7-18) mg/dL Creatinine 1.09 (0.70-1.30) mg/dL Est Cr Clr Drug Dosing TNP Estimated GFR (MDRD) > 60 BUN/Creatinine Ratio 19.3 (No establ ref range) Glucose 91 (74-99) mg/dL Calcium 8.2 L (8.5-10.1) mg/dL Total Bilirubin 0.8 (0.2-1.0) mg/dL AST 25 (15-37) U/L ALT 32 (16-63) U/L Alkaline Phosphatase 96 (46-116) U/L Troponin I < 0.017 (0.000-0.056) ng/mL Total Protein 7.0 (6.4-8.2) g/dL Albumin 3.7 (3.4-5.0) g/dL Globulin 3.3 Albumin/Globulin Ratio 1.1 COVID-19 ([place]) (NEGATIVE) 05/15/20 05/15/20 Range/Units 09:38 12:55 WBC (5.0-10.0) 10^3/uL RBC (4.6-6.2) 10^6/uL Hgb (14.0-18.0) g/dL Hct (40.0-54.0) % MCV (80-100) fL MCH (27.0-34.0) pg MCHC (33.0-35.0) g/dL Plt Count (150-450) 10^3/uL Neut % (Auto) (42.2-75.2) % Lymph % (Auto) (20.5-50.1) % [place] % (Auto) (2-8) % Eos % (Auto) (1.0-3.0) % Baso % (Auto) (0.0-1.0) % D-Dimer, Quantitative (0-400) ng/mL Sodium (136-145) mmol/L Potassium (3.5-5.1) mmol/L Chloride (98-107) mmol/L Carbon Dioxide (21-32) mmol/L Anion Gap (7-13) mEq/L BUN (7-18) mg/dL Creatinine (0.70-1.30) mg/dL Est Cr Clr Drug Dosing Estimated GFR (MDRD) BUN/Creatinine Ratio (No establ ref range) Glucose (74-99) mg/dL Calcium (8.5-10.1) mg/dL Total Bilirubin (0.2-1.0) mg/dL AST (15-37) U/L ALT (16-63) U/L Alkaline Phosphatase (46-116) U/L Troponin I < 0.017 (0.000-0.056) ng/mL Total Protein (6.4-8.2) g/dL Albumin (3.4-5.0) g/dL Globulin Albumin/Globulin Ratio COVID-19 ([place]) Negative (NEGATIVE) Meds: Medications Discontinued Medications Generic Name Dose Route Start Last Admin Trade Name Esther PRN Reason Stop Dose Admin Aspirin Confirm 05/15/20 09:08 05/15/20 09:14 Aspirin Administered 05/15/20 09:09 324 mg Dose Administration 324 mg .ROUTE .STK-MED ONE Morphine Sulfate Confirm 05/15/20 10:06 05/15/20 10:09 Morphine Administered 05/15/20 10:07 2 mg Dose Administration 2 mg .ROUTE .STK-MED ONE Nitroglycerin Confirm 05/15/20 09:08 05/15/20 09:15 Nitrostat Administered 05/15/20 09:09 0.4 mg Dose Administration 0.4 mg .ROUTE .STK-MED ONE - Re-Assessments/Exams Free Text/Narrative Re-Assessment/Exam: 05/15/20 10:22 The patient reports he continues to have left sided chest pressure, but the pressure was reduced with the Nitro. The patient reports his arm continues to have pain with numbness to his left hand. The patient was advised of the EKG and lab results. An order was placed for the patient to have an IV dose of Morphine for pain management. Departure - Departure Time of Disposition: 14:31 Disposition: Home, Self-Care 01 Condition: Fair Clinical Impression: Nonspecific chest pain Instructions: Nonspecific Chest Pain, Adult, [id number] Forms: ED Department Discharge Care Plan Goals: The patient was advised of the examination, EKG, lab, x-ray, repeat EKG and repeat lab results during the visit. The patient was given an oral dose of Aspirin, oral doses of Nitroglycerin and an IV dose of Morphine while in the ED. The patient was encouraged to continue to monitor for any additional symptoms. If the patient has any additional symptoms or further concerns, the patient should either return to the emergency department or visit his primary care facility. Sepsis Event Note (ED) - Evaluation Sepsis Screening Result: No Definite Risk - Focused Exam Vital Signs: Vital Signs Temp Pulse Resp BP BP Pulse Ox 05/15/20 09:15 127/79 05/15/20 08:53 36.2 C 62 18 132/71 98 - My Orders Last 24 Hours: My Active Orders 05/15/20 08:46 EKG Documentation Completion [RC] STAT 05/15/20 12:46 EKG Documentation Completion [RC] ROUTINE - Assessment/Plan Last 24 Hours: My Active Orders 05/15/20 08:46 EKG Documentation Completion [RC] STAT 05/15/20 12:46 EKG Documentation Completion [RC] ROUTINE
[2020-05-15 10:29] VITALS: BP 127/79
== END 2020-05-15 15:15 | disposition home or self-care (01) ==
LOC: DL.ED 08:44
DX: R07.2 Precordial pain (principal); K21.9 Gastro-esophageal reflux disease without esophagitis; M19.90 Unspecified osteoarthritis, unspecified site; I25.2 Old myocardial infarction; Z20.828 Contact with and (suspected) exposure to other viral communicable diseases; Z95.5 Presence of coronary angioplasty implant and graft; Z88.0 Allergy status to penicillin; Z79.02 Long term (current) use of antithrombotics/antiplatelets; Z79.82 Long term (current) use of aspirin; Z79.899 Other long term (current) drug therapy
CPT/HCPCS: 36415; 71045; 80053; 84484; 85025; 85379; 93005; 96374; 99284; 99285; A9270; J2270; U0002

== ENCOUNTER 2020-06-09 16:50 | Emergency (ER) | payer MEDICARE, OTHER ==
[2020-06-09 17:09] VITALS: BP 151/81; PULSE 87
[2020-06-09] MEDS ORDERED: Sodium Chloride 0.9% 10 ML Syringe FLUSH PRN (17:55)
[2020-06-09] MEDS ORDERED: fentaNYL 100 MCG/2 ML SDV IVPUSH ONE (18:36)
[2020-06-09 18:42] LABS: ANION GAP 13.9 mEq/L (7-13)
--- NOTE | 2020-06-09 18:57 | CR ---
PROCEDURE INFORMATION: Exam: XR Chest, 1 View Exam date and time: 06/09/2020 6:51 PM Age: 65 years old Clinical indication: Fever; Additional info: Fever, body aches TECHNIQUE: Imaging protocol: XR of the chest Views: 1 view. COMPARISON: CR Chest 1V Frontal 05/15/2020 10:13 AM FINDINGS: Lungs: Unremarkable. No consolidation. Pleural space: Unremarkable. No pleural effusion. No pneumothorax. Heart/Mediastinum: Unremarkable. No cardiomegaly. Bones/joints: Unremarkable. IMPRESSION: No acute findings.
--- NOTE | 2020-06-14 10:00 | EDM.PDOC ---
Scribed by Gabriella Meeks 06/09/20 1838 for Ivelisse Murphy MD <Ivelisse Murphy - Last Filed: 06/09/20 18:37> ED HPI GENERAL MEDICAL PROBLEM - General Chief Complaint: General Stated Complaint: PAIN ALL OVER, FEVER 103.3 Time Seen by Provider: 06/09/20 17:45 Source of Information: Reports: Patient, RN, RN Notes Reviewed History Limitations: Reports: No Limitations - History of Present Illness INITIAL COMMENTS - FREE TEXT/NARRATIVE: Patient presents to ER stating he had a prostate biopsy Thursday. On evening he had nausea and weakness. He laid down and hasn't moved since. He called [facility] and was to come to the ER. He has had blood in his urine, dysuria and frequency. No catheter for procedure. He states everything hu rts--back and hips worse. Onset: Gradual Duration: Constant Location: Reports: Generalized Quality: Reports: Ache Severity: Severe Improves with: Reports: None Worsens with: Reports: None Associated Symptoms: Reports: No Other Symptoms Treatments BREWERY REPRESENTATIVE: Reports: Acetaminophen generalized Pain Score (Numeric/FACES): 10 - Related Data Allergies Allergy/AdvReac Type Severity Reaction Status Date / Time Penicillins Allergy Itching Verified 06/09/20 17:16 Home Meds: Home Meds Clopidogrel [Plavix] 75 mg PO DAILY 02/25/19 [History] Metoprolol Succinate 25 mg PO DAILY 02/25/19 [History] Nitroglycerin 0.4 mg SL ASDIRECTED PRN 02/25/19 [History] atorvaSTATin Calcium [Atorvastatin Calcium] 80 mg PO BEDTIME 02/25/19 [History] Aspirin [Ecotrin EC] 81 mg PO DAILY 07/19/19 [History] Omeprazole 20 mg PO DAILY 07/19/19 [History] Past Medical History - Past Health History Medical/Surgical History: Denies Medical/Surgical History HEENT History: Reports: Impaired Vision Other HEENT History: READING GLASSES Cardiovascular History: Reports: Heart Murmur, NE, Stents Other Cardiovascular History: heart murmur when he was little. pericarditis Respiratory History: Reports: None Gastrointestinal History: Reports: Chronic Constipation, GERD Genitourinary History: Reports: None Musculoskeletal History: Reports: Arthritis Neurological History: Reports: None Psychiatric History: Reports: None Endocrine/Metabolic History: Reports: None Hematologic History: Reports: None Immunologic History: Reports: None Oncologic (Cancer) History: Reports: None Other Oncologic History: Was diagnosed with basal cell carcinoma 05/07/20 Dermatologic History: Reports: None - Infectious Disease History Infectious Disease History: Reports: None - Past Surgical History Head Surgeries/Procedures: Reports: None HEENT Surgical History: Reports: None Cardiovascular Surgical History: Reports: Coronary Artery Stent Other Cardiovascular Surgeries/Procedures: Stent placement after NE 02-23-2019 Respiratory Surgical History: Reports: None GI Surgical History: Reports: EGD Male Surgical History: Reports: Prostate Biopsy, Vasectomy Neurological Surgical History: Reports: None Musculoskeletal Surgical History: Reports: None Dermatological Surgical History: Reports: None Social & Family History - Family History Family Medical History: Noncontributory Cardiac: Reports: CAD, Stent Endocrine/Metabolic: Reports: Diabetes, type II - Tobacco Use Smoking Status *Q: Never Smoker Second Hand Smoke Exposure: No - Caffeine Use Caffeine Use: Reports: Coffee Caffeine Use Comment: 1-2 cups daily - Recreational Drug Use Recreational Drug Use: No - Living Situation & Occupation Living situation: Reports: Occupation: Employed ED ROS GENERAL - Review of Systems Review Of Systems: Comprehensive ROS is negative, except as noted in HPI. ED EXAM, GENERAL - Physical Exam Exam: See Below Exam Limited By: No Limitations General Appearance: Alert, WD/WN, No Apparent Distress Head: Atraumatic, Normocephalic Neck: Normal Inspection Respiratory/Chest: No Respiratory Distress, Lungs Clear, Normal Breath Sounds, No Accessory Muscle Use, Chest Non-Tender Cardiovascular: Normal Peripheral Pulses, Regular Rate, Rhythm, No Edema, No Gallop, No JVD, No Murmur, No Rub GI/Abdominal: Other (mild diffuse tenderness.. No reound or guarding.) (Male) Exam: Deferred Rectal (Males) Exam: Deferred Back Exam: Normal Inspection, Full Range of Motion, NT Extremities: Normal Inspection, Normal Range of Motion, Non-Tender, Normal Capillary Refill, No Pedal Edema Neurological: Alert, Oriented, CN II-XII Intact, Normal Cognition, Normal Gait, Normal Reflexes, No Motor/Sensory Deficits Psychiatric: Normal Affect, Normal Mood Skin Exam: Warm, Dry, Intact, Normal Color, No Rash Lymphatic: No Adenopathy Course - Re-Assessments/Exams Free Text/Narrative Re-Assessment/Exam: Patient care transferred to Dr. Viera at 1900 shift change. 06/09/20 Departure - Departure Disposition: Home, Self-Care 01 Clinical Impression: UTI, Urinary tract infectious disease - Discharge Information Instructions: Urinary Tract Infection, Adult, [id number] Forms: ED Department Discharge Additional Instructions: 1) stop cipro 2) drink lots of liquids 3) follow up with family doctor next week if not totally better by Thursday rx given; keflex 250mg qid x 40 Sepsis Event Note (ED) - Evaluation Sepsis Screening Result: No Definite Risk <Donato Viera - Last Filed: 06/09/20 20:25> Course - Vital Signs Last Recorded V/S: Last Vital Signs Temp 39.2 C H 06/09/20 17:06 Pulse 87 06/09/20 17:06 Resp 20 06/09/20 17:06 BP 151/81 H 06/09/20 17:06 Pulse Ox 99 06/09/20 17:06 - Orders/Labs/Meds Orders: Active Orders 24 hr Category Date Time Status Peripheral IV Care [RC] . DIRECTED Care 06/09/20 17:55 Active CULTURE BLOOD [BC] Stat Lab 06/09/20 18:00 Results CULTURE BLOOD [BC] Stat Lab 06/09/20 18:15 Received CULTURE URINE [RM] Stat Lab 06/09/20 18:08 Received Sodium Chloride 0.9% [Saline Flush] Med 06/09/20 17:55 Active 10 ml FLUSH ASDIRECTED PRN Blood Culture x2 Reflex Set [OM.PC] Stat Oth 06/09/20 17:55 Ordered Peripheral IV Insertion Adult [OM.PC] Stat Oth 06/09/20 17:54 Ordered Medication Orders Sodium Chloride (Saline Flush) 10 ml FLUSH ASDIRECTED PRN PRN Reason: Keep Vein Open Last Admin: 06/09/20 18:45 Dose: 10 ml Documented by: ARNAUD Labs: Laboratory Tests 06/09/20 06/09/20 06/09/20 Range/Units 17:23 18:00 18:00 WBC 15.0 H (5.0-10.0) 10^3/uL RBC 4.60 (4.6-6.2) 10^6/uL Hgb 14.8 (14.0-18.0) g/dL Hct 43.2 (40.0-54.0) % MCV 93.9 (80-100) fL MCH 32.2 (27.0-34.0) pg MCHC 34.3 (33.0-35.0) g/dL Plt Count 86 L (150-450) 10^3/uL Neut % (Auto) 90.0 H (42.2-75.2) % Lymph % (Auto) 3.1 L (20.5-50.1) % [place] % (Auto) 6.7 (2-8) % Eos % (Auto) 0.1 L (1.0-3.0) % Baso % (Auto) 0.1 (0.0-1.0) % Sodium 135 L (136-145) mmol/L Potassium 3.9 (3.5-5.1) mmol/L Chloride 99 (98-107) mmol/L Carbon Dioxide 26 (21-32) mmol/L Anion Gap 13.9 H (7-13) mEq/L BUN 15 (7-18) mg/dL Creatinine 1.25 (0.70-1.30) mg/dL Est Cr Clr Drug Dosing 62.94 mL/min Estimated GFR (MDRD) 58 BUN/Creatinine Ratio 12.0 (No establ ref range) Glucose 114 H (74-99) mg/dL Lactic Acid (0.4-2.0) mmol/L Calcium 8.3 L (8.5-10.1) mg/dL Total Bilirubin 1.0 (0.2-1.0) mg/dL AST 20 (15-37) U/L ALT 27 (16-63) U/L Alkaline Phosphatase 90 (46-116) U/L Total Protein 7.1 (6.4-8.2) g/dL Albumin 3.3 L (3.4-5.0) g/dL Globulin 3.8 Albumin/Globulin Ratio 0.87 Urine Color (YELLOW) Urine Appearance (CLEAR) Urine pH (5.0-9.0) Ur Specific Eddy (1.005-1.030) Urine Protein (NEGATIVE) Urine Glucose (UA) (NEGATIVE) Urine Ketones (NEGATIVE) Urine Occult Blood (NEGATIVE) Urine Nitrite (NEGATIVE) Urine Bilirubin (NEGATIVE) Urine Urobilinogen (0.2-1.0) mg/dL Ur Leukocyte Esterase (NEGATIVE) Urine RBC /HPF Urine WBC (0-5/HPF) /HPF Ur Epithelial Cells (NOT SEEN) /HPF Urine Bacteria (0-FEW/HPF) /HPF COVID-19 ([place]) Negative (NEGATIVE) 06/09/20 06/09/20 Range/Units 18:00 18:08 WBC (5.0-10.0) 10^3/uL RBC (4.6-6.2) 10^6/uL Hgb (14.0-18.0) g/dL Hct (40.0-54.0) % MCV (80-100) fL MCH (27.0-34.0) pg MCHC (33.0-35.0) g/dL Plt Count (150-450) 10^3/uL Neut % (Auto) (42.2-75.2) % Lymph % (Auto) (20.5-50.1) % [place] % (Auto) (2-8) % Eos % (Auto) (1.0-3.0) % Baso % (Auto) (0.0-1.0) % Sodium (136-145) mmol/L Potassium (3.5-5.1) mmol/L Chloride (98-107) mmol/L Carbon Dioxide (21-32) mmol/L Anion Gap (7-13) mEq/L BUN (7-18) mg/dL Creatinine (0.70-1.30) mg/dL Est Cr Clr Drug Dosing mL/min Estimated GFR (MDRD) BUN/Creatinine Ratio (No establ ref range) Glucose (74-99) mg/dL Lactic Acid 1.3 (0.4-2.0) mmol/L Calcium (8.5-10.1) mg/dL Total Bilirubin (0.2-1.0) mg/dL AST (15-37) U/L ALT (16-63) U/L Alkaline Phosphatase (46-116) U/L Total Protein (6.4-8.2) g/dL Albumin (3.4-5.0) g/dL Globulin Albumin/Globulin Ratio Urine Color Dark yellow (YELLOW) Urine Appearance Cloudy (CLEAR) Urine pH 7.0 (5.0-9.0) Ur Specific Eddy 1.025 (1.005-1.030) Urine Protein 100 H (NEGATIVE) Urine Glucose (UA) Negative (NEGATIVE) Urine Ketones 15 H (NEGATIVE) Urine Occult Blood Large H (NEGATIVE) Urine Nitrite Negative (NEGATIVE) Urine Bilirubin Negative (NEGATIVE) Urine Urobilinogen 0.2 (0.2-1.0) mg/dL Ur Leukocyte Esterase Small H (NEGATIVE) Urine RBC Packed H /HPF Urine WBC 20-30 H (0-5/HPF) /HPF Ur Epithelial Cells Few (NOT SEEN) /HPF Urine Bacteria Moderate H (0-FEW/HPF) /HPF COVID-19 ([place]) (NEGATIVE) Meds: Medications Generic Name Dose Route Start Last Admin Trade Name Freq PRN Reason Stop Dose Admin Sodium Chloride 10 ml 06/09/20 17:55 06/09/20 18:45 Saline Flush FLUSH 10 ml ASDIRECTED PRN Administration Keep Vein Open Discontinued Medications Generic Name Dose Route Start Last Admin Trade Name Freq PRN Reason Stop Dose Admin Fentanyl 50 mcg 06/09/20 18:36 06/09/20 18:45 Sublimaze IVPUSH 06/09/20 18:37 50 mcg ONETIME ONE Administration Ceftriaxone Sodium 1,000 mg/ 100 mls @ 200 mls/hr 06/09/20 19:44 06/09/20 19:52 Sodium Chloride IV 06/09/20 20:13 200 mls/hr ONETIME ONE Administration - Re-Assessments/Exams Free Text/Narrative Re-Assessment/Exam: 06/09/20 19:44 results discussed with pt who is on his last dose of cipro since last week. expl ained to pt his ABX need to be changed due to its seemingly ineffectiveness. Departure - Departure Time of Disposition: 20:25 Condition: Good Sepsis Event Note (ED) - Focused Exam Vital Signs: Vital Signs Temp Pulse Resp BP Pulse Ox 06/09/20 17:06 39.2 C H 87 20 151/81 H 99 I have read and agree with the documentation that has been completed regarding this visit. By signing this record, I attest that the documentation was completed in my physical presence and is an accurate record of the encounter.
== END 2020-06-09 20:35 | disposition home or self-care (01) ==
LOC: DL.ED 16:50
DX: N39.0 Urinary tract infection, site not specified (principal); K21.9 Gastro-esophageal reflux disease without esophagitis; M19.90 Unspecified osteoarthritis, unspecified site; Z88.0 Allergy status to penicillin; Z20.828 Contact with and (suspected) exposure to other viral communicable diseases; Z79.82 Long term (current) use of aspirin; Z79.899 Other long term (current) drug therapy; Z79.01 Long term (current) use of anticoagulants
CPT/HCPCS: 36415; 71045; 80053; 81001; 83605; 85025; 87040; 87086; 87088; 87186; 96365; 96375; 99285-25; J0696; J3010; J7050; U0002

== ENCOUNTER 2022-11-03 09:58 | Emergency (ER) | payer MEDICARE, OTHER ==
[2022-11-03 10:26] VITALS: BP 139/83; PULSE 62
[2022-11-03] MEDS ORDERED: Ketorolac 30 MG/ML SDV IM ONE (10:27)
== END 2022-11-03 10:55 | disposition home or self-care (01) ==
LOC: DL.ED 09:58
DX: R07.81 Pleurodynia (principal); I25.2 Old myocardial infarction; K21.9 Gastro-esophageal reflux disease without esophagitis; M19.90 Unspecified osteoarthritis, unspecified site; E66.9 Obesity, unspecified; Z68.33 Body mass index [BMI] 33.0-33.9, adult; Z88.0 Allergy status to penicillin; Z79.02 Long term (current) use of antithrombotics/antiplatelets; Z79.82 Long term (current) use of aspirin; Z79.899 Other long term (current) drug therapy; W00.0XXA Fall on same level due to ice and snow, initial encounter
CPT/HCPCS: 71101; 96372; 99283; J1885

== ENCOUNTER 2023-04-18 12:45 | Emergency (ER) | payer MEDICARE, OTHER ==
[2023-04-18] MEDS ORDERED: Lidocaine 1% 30 ML SDV INJECT ONE (13:12)
[2023-04-18 14:02] VITALS: BP 136/83; PULSE 72
== END 2023-04-18 14:18 | disposition home or self-care (01) ==
LOC: DL.ED 12:45
DX: S61.011A Laceration without foreign body of right thumb without damage to nail, initial encounter (principal); I25.2 Old myocardial infarction; K21.9 Gastro-esophageal reflux disease without esophagitis; M19.90 Unspecified osteoarthritis, unspecified site; E66.9 Obesity, unspecified; Z68.33 Body mass index [BMI] 33.0-33.9, adult; Z88.0 Allergy status to penicillin; Z79.899 Other long term (current) drug therapy; Z79.82 Long term (current) use of aspirin; W26.8XXA Contact with other sharp object(s), not elsewhere classified, initial encounter
CPT/HCPCS: 12002; 99283; J3490

== ENCOUNTER 2024-04-05 14:14 | Emergency (ER) | payer MEDICARE, OTHER ==
[2024-04-05 14:29] VITALS: BP 148/95; PULSE 86
[2024-04-05] MEDS: Sodium Chloride 0.9% 10 ML Syringe FLUSH PRN (15:00)
[2024-04-05 15:16] LABS: BASOPHILS PERCENT AUTO 0.4 % (0.0-1.0); EOSINOPHILS PERCENT AUTO 1.7 % (1.0-3.0); HEMATOCRIT 45.3 % (40.0-54.0); HEMOGLOBIN 15.5 g/dL (14.0-18.0); LYMPHOCYTES PERCENT AUTO 10.2 % (20.5-50.1); MEAN CORPUSCULAR HEMOGLOBIN 32.1 pg (27.0-34.0); MEAN CORPUSCULAR HGB CONC 34.2 g/dL (33.0-35.0); MEAN CORPUSCULAR VOLUME 93.8 fL (80-100); NEUTROPHILS PERCENT AUTO 76.7 % (42.2-75.2); PLATELET COUNT,PLT 145 10^3/uL (150-450); RED BLOOD CELL COUNT 4.83 10^6/uL (4.6-6.2); WHITE BLOOD CELL COUNT,WBC 10.3 10^3/uL (5.0-10.0)
[2024-04-05 15:44] LABS: ALBUMIN 3.3 g/dL (3.4-5.0)
[2024-04-05 15:48] LABS: APPEARANCE,URINE CLEAR (CLEAR); BILIRUBIN,URINE NEGATIVE (NEGATIVE); COLOR,URINE YELLOW (YELLOW); GLUCOSE,URINE NEGATIVE (NEGATIVE); KETONES,URINE TRACE (NEGATIVE); LEUKOCYTE ESTERASE,URINE NEGATIVE (NEGATIVE); NITRITE,URINE NEGATIVE (NEGATIVE); OCCULT BLOOD,URINE NEGATIVE (NEGATIVE); PROTEIN,URINE 30 (NEGATIVE)
[2024-04-05 15:57] LABS: PROTHROMBIN TIME 10.6 SEC (9.0-12.0); PTT,PARTIAL THROMBOPLSTIN TIME 25.9 SEC (22.0-34.0)
[2024-04-05 16:05] LABS: BACTERIA,URINE RARE /HPF (0-FEW/HPF); EPITHELIAL CELLS,URINE RARE /HPF (NOT SEEN); RBC,URINE 0-5 /HPF (0-5); WBC,URINE 0-5 /HPF (0-5/HPF)
[2024-04-05 16:42] LABS: A/G RATIO 0.94; ANION GAP 12.5 mEq/L (7-13); BILIRUBIN TOTAL 0.7 mg/dL (0.2-1.0); BUN/CREATININE RATIO 16.3 (No establ ref range); C-REACTIVE PROTEIN 5.26 ng/dL (<=0.50); CALCIUM 8.6 mg/dL (8.5-10.1); CREATININE 1.04 mg/dL (0.70-1.30); EST CRCL DRUG DOSING (CG) 71.51 mL/min; POTASSIUM,K 4.5 mmol/L (3.5-5.1); PROTEIN TOTAL,TP 6.8 g/dL (6.4-8.2)
[2024-04-05] MEDS: Iopamidol 612 MG/ML 100 ML Bottle IVPUSH ONE (16:45)
== END 2024-04-05 18:06 | disposition home or self-care (01) ==
LOC: DL.ED 14:14
DX: K42.9 Umbilical hernia without obstruction or gangrene (principal); K21.9 Gastro-esophageal reflux disease without esophagitis; Z88.0 Allergy status to penicillin; Z79.02 Long term (current) use of antithrombotics/antiplatelets; Z79.82 Long term (current) use of aspirin; Z79.899 Other long term (current) drug therapy; Z95.5 Presence of coronary angioplasty implant and graft
CPT/HCPCS: 36415; 71045; 74177; 80053; 81001; 82150; 83605; 83690; 84484; 85025; 85610; 85730; 86140; 87804; 93005; 99285; Q9967; U0002; J3490

== ENCOUNTER 2024-12-07 09:59 | Emergency (ER) | payer MEDICARE, OTHER ==
[2024-12-07] MEDS ORDERED: Sodium Chloride 0.9% 10 ML Syringe FLUSH PRN (10:43)
[2024-12-07 11:07] VITALS: BP 136/85; PULSE 58
[2024-12-07 11:09] LABS: BASOPHILS PERCENT AUTO 0.9 % (0.0-1.0); HEMATOCRIT 46.4 % (40.0-54.0); HEMOGLOBIN 15.4 g/dL (14.0-18.0); MEAN CORPUSCULAR HEMOGLOBIN 31.3 pg (27.0-34.0); MEAN CORPUSCULAR HGB CONC 33.2 g/dL (33.0-35.0); MEAN CORPUSCULAR VOLUME 94.3 fL (80-100); MONOCYTES PERCENT AUTO 8.9 % (2-8); NEUTROPHILS PERCENT AUTO 68.2 % (42.2-75.2); PLATELET COUNT,PLT 119 10^3/uL (150-450); RED BLOOD CELL COUNT 4.92 10^6/uL (4.6-6.2)
[2024-12-07 11:10] LABS: APPEARANCE,URINE CLEAR (CLEAR); BILIRUBIN,URINE NEGATIVE (NEGATIVE); COLOR,URINE YELLOW (YELLOW); GLUCOSE,URINE NEGATIVE (NEGATIVE); KETONES,URINE NEGATIVE (NEGATIVE); LEUKOCYTE ESTERASE,URINE NEGATIVE (NEGATIVE); NITRITE,URINE NEGATIVE (NEGATIVE); OCCULT BLOOD,URINE NEGATIVE (NEGATIVE); PROTEIN,URINE NEGATIVE (NEGATIVE); UROBILINOGEN,URINE 0.2 mg/dL (0.2-1.0)
[2024-12-07 11:52] LABS: A/G RATIO 1.1; ALANINE AMINOTRANSFERASE,ALT 33 U/L (16-63); ALBUMIN 3.7 g/dL (3.4-5.0); ALKALINE PHOSPHATASE 85 U/L (46-116); ANION GAP 9.3 mEq/L (7-13); ASPARTATE AMNIOTRANSFERASE,AST 20 U/L (15-37); BILIRUBIN TOTAL 0.6 mg/dL (0.2-1.0); BLOOD UREA NITROGEN,BUN 19 mg/dL (7-18); BUN/CREATININE RATIO 19.6 (No establ ref range); CALCIUM 8.8 mg/dL (8.5-10.1); CARBON DIOXIDE,CO2 29 mmol/L (21-32); CHLORIDE,CL 105 mmol/L (98-107); CREATININE 0.97 mg/dL (0.70-1.30); EST CRCL DRUG DOSING (CG) 76.67 mL/min; GLUCOSE RANDOM 92 mg/dL (70-99); MAGNESIUM 1.9 mg/dL (1.8-2.4); POTASSIUM,K 4.3 mmol/L (3.5-5.1); PROTEIN TOTAL,TP 7.2 g/dL (6.4-8.2); SODIUM,NA 139 mmol/L (136-145)
[2024-12-07 11:53] LABS: C-REACTIVE PROTEIN < 0.50 ng/dL (<=0.50); ESTIMATED GFR 83 mL/min (>=60)
[2024-12-07 11:59] LABS: T4 FREE 0.81 ng/dL (0.76-1.46); TSH ULTRASENSITIVE 1.68 uIU/mL (0.36-3.74)
[2024-12-07] MEDS: Ondansetron 4 MG/2 ML SDV IVPUSH ONE (12:11)
[2024-12-07] MEDS: Meclizine 12.5 MG Tab PO ONE (12:11)
== END 2024-12-07 12:44 | disposition home or self-care (01) ==
LOC: DL.ED 09:59
DX: H81.11 Benign paroxysmal vertigo, right ear (principal); I25.10 Atherosclerotic heart disease of native coronary artery without angina pectoris; E78.5 Hyperlipidemia, unspecified; Z95.5 Presence of coronary angioplasty implant and graft; I25.2 Old myocardial infarction; Z88.0 Allergy status to penicillin; Z79.82 Long term (current) use of aspirin; Z79.899 Other long term (current) drug therapy
CPT/HCPCS: 36415; 70450; 80053; 81003; 82947; 83735; 84439; 84443; 84484; 85025; 86140; 93005; 96374; 99284; A9270; J2405

== ENCOUNTER 2025-03-16 06:56 | Day surgery (SDC) | payer MEDICARE, MEDICAID ==
[~2025-03-16 06:56] MED LIST changes: -Dextrose 5%-0.45% NaCl 1,000 ML IV SCH; +Ketamine 500 mg/10 ML MDV ONE; +Propofol 200 MG/20 ML SDV ONE; -Sodium Chloride 0.9% 10 ML Syringe FLUSH PRN
[2025-03-16] MEDS: Lactated Ringers 1,000 ML IV SCH (07:37)
[2025-03-16] MEDS ORDERED: Propofol 200 MG/20 ML SDV ONE (08:57)
[2025-03-16 10:06] VITALS: BP 134/75; PULSE 60
== END 2025-03-16 10:27 | disposition home or self-care (01) ==
LOC: DL.ENDO 06:56
PROVIDERS: ATTEND Internal Medicine Gastroenterology
DX: K31.89 Other diseases of stomach and duodenum (principal); I25.10 Atherosclerotic heart disease of native coronary artery without angina pectoris; E66.9 Obesity, unspecified; Z68.35 Body mass index [BMI] 35.0-35.9, adult
CPT/HCPCS: 43239; 88305; J7120

== ENCOUNTER 2025-08-17 17:33 | Emergency (ER) | payer MEDICARE, MEDICAID ==
[2025-08-17] MEDS ORDERED: Sodium Chloride 0.9% 10 ML Syringe FLUSH PRN (17:42)
[2025-08-17 17:59] LABS: PLATELET COUNT,PLT 168 10^3/uL (150-450); RED BLOOD CELL COUNT 5.11 10^6/uL (4.6-6.2); WHITE BLOOD CELL COUNT,WBC 17.2 10^3/uL (5.0-10.0)
[2025-08-17 18:00] LABS: BASOPHILS PERCENT AUTO 0.2 % (0.0-1.0); EOSINOPHILS PERCENT AUTO 0.3 % (1.0-3.0); LYMPHOCYTES PERCENT AUTO 10.3 % (20.5-50.1); MONOCYTES PERCENT AUTO 9.7 % (2-8); NEUTROPHILS PERCENT AUTO 79.5 % (42.2-75.2)
[2025-08-17] MEDS: fentaNYL 100 MCG/2 ML SDV IVPUSH ONE (18:06)
[2025-08-17 18:16] LABS: A/G RATIO 1.3; ALANINE AMINOTRANSFERASE,ALT 42.0 U/L (16-63); ASPARTATE AMNIOTRANSFERASE,AST 24.0 U/L (15-37); BILIRUBIN TOTAL 1.2 mg/dL (0.2-1.0); BLOOD UREA NITROGEN,BUN 26.0 mg/dL (7-18); CARBON DIOXIDE,CO2 20.0 mmol/L (21-32); CHLORIDE,CL 100.0 mmol/L (98-107); CREATININE 0.96 mg/dL (0.70-1.30); EST CRCL DRUG DOSING (CG) 76.34 mL/min; GLUCOSE RANDOM 97.0 mg/dL (70-99); POTASSIUM,K 4.2 mmol/L (3.5-5.1); PROTEIN TOTAL,TP 7.5 g/dL (6.4-8.2); SODIUM,NA 137.0 mmol/L (136-145)
[2025-08-17 18:17] LABS: ESTIMATED GFR 84.0 mL/min (>=60)
[2025-08-17 18:21] LABS: LYMPHOCYTES PERCENT MAN 11 % (20-50); MONOCYTES PERCENT MAN 7 % (2-8); SEG NEUTROPHILS PERCENT MAN 82 % (42-75)
[2025-08-17 18:25] LABS: APPEARANCE,URINE SLIGHTLY CLOUDY (CLEAR); GLUCOSE,URINE NEGATIVE (NEGATIVE); OCCULT BLOOD,URINE NEGATIVE (NEGATIVE)
[2025-08-17 18:36] LABS: EPITHELIAL CELLS,URINE RARE /HPF (NOT SEEN)
[2025-08-17] MEDS: Iopamidol 612 MG/ML 100 ML Bottle IVPUSH ONE (19:01)
[2025-08-17] MEDS: Lactated Ringers 1,000 ML IV ONE (19:02)
[2025-08-17] MEDS: Lactulose Soln 10 GM/15 ML 30 ML UD Cup PO ONE (20:18)
[2025-08-17] MEDS: Ketorolac 30 MG/ML SDV IVPUSH ONE (20:18)
[2025-08-17 20:49] VITALS: BP 143/80; PULSE 77
== END 2025-08-17 20:46 | disposition home or self-care (01) ==
LOC: DL.ED 17:33
DX: K59.01 Slow transit constipation (principal); M54.16 Radiculopathy, lumbar region; M19.90 Unspecified osteoarthritis, unspecified site; E66.9 Obesity, unspecified; Z68.32 Body mass index [BMI] 32.0-32.9, adult; Z88.0 Allergy status to penicillin; Z91.040 Latex allergy status; Z79.82 Long term (current) use of aspirin; Z79.899 Other long term (current) drug therapy
CPT/HCPCS: 36415; 74177; 80053; 81001; 85025; 96361; 96374; 96375; 99284-25; A9270-GY; J1171; J1885; J3010; J7120; Q9967